=== PATIENT | male | born 1995 | race Caucasian/White ===

== ENCOUNTER 2019-01-31 20:12 | Emergency (ER) | payer OTHER ==
[~2019-01-31] VITALS: Ht 182.9 cm; Wt 81.7 kg
[~2019-01-31 20:12] MED LIST: ACCUNEB SO1.25 MG/1 INH; ADDERALL 10 MG10 MG PO; ALBUTEROL NEB; ALBUTEROL2.5 MG/3 M IH; CEPHALEXIN 500500 M3 PO; FLONASE 0.05%50 MCG; HYDROCODONE-AP1 EAC6 PO; HYDROXYZINE HCL25 M1 PO; IBUPROFEN 800800 M1 PO; IBUPROFEN 800800 MG PO; NOHOMEMEDICATIONS; NORCO 5-325 TA1 EACH PO; OMEPRAZOLE40 MG PO; PREDNISONE50 MG PO; PROAIR HFA8.5 GM IH; SINGULAIR 10 MG10 M1 PO; ZOFRAN ODT4 MG PO
[2019-01-31] MEDS ORDERED: SYMBICORT160 MCG/4. INH (20:29)
[2019-01-31] MEDS ORDERED: ACETAMINOPHEN-1 EAC1 PO (21:05)
[2019-01-31] MEDS ORDERED: IBUPROFEN 600600 M1 PO (21:05)
[2019-01-31 21:18] VITALS: BP 143/74
== END 2019-01-31 21:19 | disposition home or self-care (01) ==
LOC: M.ERS 20:12
DX: S80.211A Abrasion, right knee, initial encounter (principal); J45.909 Unspecified asthma, uncomplicated; F32.9 Major depressive disorder, single episode, unspecified; Z91.041 Radiographic dye allergy status; W17.89XA Other fall from one level to another, initial encounter; Y93.44 Activity, trampolining; Y92.89 Other specified places as the place of occurrence of the external cause; Y99.8 Other external cause status

== ENCOUNTER → 2019-02-16 | Outpatient (CLI) | payer OTHER ==
[~2019-02-16] MED LIST changes: +ACETAMINOPHEN-1 EAC1 PO; +IBUPROFEN 600600 M1 PO; +SYMBICORT160 MCG/4. INH
== END ==
LOC: M.MRI 11:18
DX: S82.014A Nondisplaced osteochondral fracture of right patella, initial encounter for closed fracture (principal); M25.461 Effusion, right knee; R60.0 Localized edema; W19.XXXA Unspecified fall, initial encounter; Y93.89 Activity, other specified; Y92.89 Other specified places as the place of occurrence of the external cause; Y99.8 Other external cause status